=== PATIENT | female | born 1960 | race Caucasian/White ===

== ENCOUNTER 2017-06-30 10:34 | Inpatient (IN) | payer OTHER ==
[2017-06-30] MEDS ORDERED: NACL 0.9% 3 ML SYG IV (12:00)
[2017-06-30] MEDS ORDERED: GUAIFENESIN/DM 5ML CUP PO (12:00)
[2017-06-30] MEDS ORDERED: ACETAMINOPHEN 325 MG TAB PO (12:00)
[2017-06-30] MEDS ORDERED: ALBUTEROL/IPRATROPIUM (NEB) 3 ML AMP HHN (12:00)
[2017-06-30] MEDS ORDERED: GLUCOSE GEL 15 GRAM TUBE BUCCAL (12:30)
[2017-06-30] MEDS ORDERED: DEXTROSE 50% 50 ML SYRINGE IV ×2 (12:30)
[2017-06-30] MEDS ORDERED: GLUCOSE GEL 15 GRAM TUBE PO ×2 (12:30)
[2017-06-30] MEDS ORDERED: GLUCAGON 1 MG INJ IM (12:30)
[2017-06-30] MEDS: ALBUTEROL/IPRATROPIUM (NEB) 3 ML AMP HHN (13:05)
[2017-06-30] MEDS: CEFTRIAXONE 1 GM/50 ML (PMX) 50 ML IVPB (13:54)
[2017-06-30] MEDS: INSULIN GLARGINE [LANtus] 3 ML PEN SC (13:58)
[2017-06-30] MEDS ORDERED: DIPHENHYDRAMINE 25 MG CAP PO (14:30)
[2017-06-30] MEDS: AZITHROMYCIN 500MG/NS (PMX) 250 ML IVPB (14:35)
[2017-06-30 15:41] LABS: LACTIC ACID 3.4 mmol/L (0.5-2.0)
[2017-06-30] MEDS: SOD CHLORIDE 0.45% 1,000 ML IV (16:33)
[2017-06-30] MEDS: INSULIN ASPART [NOVOLOG] 3 ML PEN SC ×2 (17:09→21:00)
[2017-06-30] MEDS ORDERED: INSULIN ASPART [NOVOLOG] 3 ML PEN SC (17:35)
[2017-06-30] MEDS ORDERED: NON-FORMULARY/PATIENT OWN MED (Simvastatin 10 MG) PO (21:00)
[2017-06-30] MEDS: FAMOTIDINE 20 MG TAB PO (21:07)
[2017-06-30] MEDS: HEPARIN 5,000 UNIT/0.5 ML VIAL SC (21:14)
[2017-06-30] MEDS: ATORVASTATIN 10 MG TAB PO (21:17)
[2017-07-01] MEDS: ACCU-CHEK XX (01:18)
[2017-07-01] MEDS: SOD CHLORIDE 0.45% 1,000 ML IV ×2 (05:37→20:45)
[2017-07-01] MEDS: HYDROCHLOROTHIAZIDE 25 MG TAB PO (05:37)
[2017-07-01 05:39] LABS: ADD MAN DIFF? NO
[2017-07-01 05:41] LABS: WHITE BLOOD COUNT 11.5 10^3/ul (4.8-10.8)
[2017-07-01 05:41] LABS: ABNORMAL IP MESSAGE 1; BASOPHIL # 0.1 10^3/ul (0.0-0.1); BASOPHILS % 0.7 % (0.0-2.0); EOSINOPHILS # 0.2 10^3/ul (0.0-0.5); EOSINOPHILS % 2.1 % (0.0-7.0); LYMPHOCYTES # 5.6 10^3/ul (0.8-2.9); MEAN CORPUSCULAR HEMOGLOBIN 31.3 pg (29.0-33.0); MEAN CORPUSCULAR HGB CONC 34.3 g/dl (32.0-37.0); MEAN CORPUSCULAR VOLUME 91.4 fl (82.0-101.0); MEAN PLATELET VOLUME 12.8 fl (7.4-10.4); MONOCYTE # 0.6 10^3/ul (0.3-0.9); MONOCYTES % 5.2 % (0.0-11.0); NEUTROPHIL # 4.9 10^3/ul (1.6-7.5); NEUTROPHILS % 42.7 % (39.0-77.0); PLATELET COUNT 214 10^3/UL (140-415); RED BLOOD COUNT 3.83 10^6/ul (4.20-5.40); RED CELL DISTRIBUTION WIDTH 13.3 % (11.5-14.5)
[2017-07-01 05:59] LABS: POSITIVE DIFF @See below
[2017-07-01 06:18] LABS: ANION GAP 13 (8-16); BLOOD UREA NITROGEN 10 mg/dl (7-20); CALCIUM 8.5 mg/dl (8.4-10.2); CARBON DIOXIDE 26 mmol/L (21-31); CHLORIDE 109 mmol/L (97-110); CHOL/HDL RATIO 4.1 RATIO; CHOLESTEROL 144 mg/dl (100-200); CREATININE 0.66 mg/dl (0.44-1.00); GLUCOSE 96 mg/dl (70-220); HDL CHOLESTEROL 35 mg/dl (37-92); LDL CHOLESTEROL,CALCULATED 74 mg/dl; MAGNESIUM 1.8 mg/dl (1.7-2.5); POTASSIUM 3.4 mmol/L (3.5-5.1); SODIUM 145 mmol/L (135-144); TRIGLYCERIDES 176 mg/dl (0-149)
[2017-07-01 06:23] LABS: LACTIC ACID 1.3 mmol/L (0.5-2.0)
[2017-07-01 06:25] LABS: HEMOGLOBIN A1C 6.8 % (0-5.9)
[2017-07-01] MEDS: INSULIN ASPART [NOVOLOG] 3 ML PEN SC ×4 (08:00→20:49)
[2017-07-01] MEDS ORDERED: BENAZEPRIL 10 MG TAB PO (09:00)
[2017-07-01] MEDS ORDERED: AMLODIPINE 2.5 MG TAB PO (09:00)
[2017-07-01] MEDS: FAMOTIDINE 20 MG TAB PO ×2 (09:03→20:49)
[2017-07-01] MEDS: INSULIN GLARGINE [LANtus] 3 ML PEN SC (09:04)
[2017-07-01] MEDS: HEPARIN 5,000 UNIT/0.5 ML VIAL SC ×2 (09:04→20:48)
[2017-07-01] MEDS: CEFTRIAXONE 1 GM/50 ML (PMX) 50 ML IVPB (12:13)
[2017-07-01] MEDS: AZITHROMYCIN 500MG/NS (PMX) 250 ML IVPB (13:32)
[2017-07-01] MEDS ORDERED: GUAIFENESIN/DM 5ML CUP PO (19:00)
[2017-07-01] MEDS: ATORVASTATIN 10 MG TAB PO (20:47)
[2017-07-02] MEDS: ACCU-CHEK XX (01:36)
[2017-07-02 05:28] LABS: ADD MAN DIFF? NO
[2017-07-02 05:32] LABS: WHITE BLOOD COUNT 11.6 10^3/ul (4.8-10.8)
[2017-07-02 05:32] LABS: ABNORMAL IP MESSAGE 1; BASOPHIL # 0.1 10^3/ul (0.0-0.1); BASOPHILS % 0.8 % (0.0-2.0); EOSINOPHILS # 0.3 10^3/ul (0.0-0.5); EOSINOPHILS % 2.5 % (0.0-7.0); HEMATOCRIT 36.1 % (37.0-47.0); HEMOGLOBIN 12.3 g/dl (12.0-16.0); LYMPHOCYTES # 5.6 10^3/ul (0.8-2.9); LYMPHOCYTES % 48.7 % (15.0-51.0); MEAN CORPUSCULAR HEMOGLOBIN 30.4 pg (29.0-33.0); MEAN CORPUSCULAR HGB CONC 34.1 g/dl (32.0-37.0); MEAN CORPUSCULAR VOLUME 89.4 fl (82.0-101.0); MEAN PLATELET VOLUME 13.3 fl (7.4-10.4); MONOCYTE # 0.7 10^3/ul (0.3-0.9); MONOCYTES % 6.2 % (0.0-11.0); NEUTROPHIL # 4.8 10^3/ul (1.6-7.5); NEUTROPHILS % 41.5 % (39.0-77.0); PLATELET COUNT 229 10^3/UL (140-415); RED BLOOD COUNT 4.04 10^6/ul (4.20-5.40); RED CELL DISTRIBUTION WIDTH 13.1 % (11.5-14.5)
[2017-07-02 05:43] LABS: POSITIVE DIFF @See below
[2017-07-02 05:49] LABS: INR 1.02; PROTIME 13.5 Sec (11.9-14.9); PT RATIO 1.1
[2017-07-02 05:53] LABS: ALANINE AMINOTRANSFERASE 52 IU/L (13-69); ALBUMIN 3.9 g/dl (3.3-4.9); ALBUMIN/GLOBULIN RATIO 0.97; ALKALINE PHOSPHATASE 69 IU/L (42-121); ANION GAP 15 (8-16); ASPARTATE AMINO TRANSFERASE 43 IU/L (15-46); BILIRUBIN,INDIRECT 0.5 mg/dl (0-1.1); BILIRUBIN,TOTAL 0.5 mg/dl (0.2-1.3); BLOOD UREA NITROGEN 13 mg/dl (7-20); CALCIUM 9.1 mg/dl (8.4-10.2); CARBON DIOXIDE 28 mmol/L (21-31); CHLORIDE 106 mmol/L (97-110); CREATININE 0.65 mg/dl (0.44-1.00); GLUCOSE 95 mg/dl (70-220); MAGNESIUM 1.8 mg/dl (1.7-2.5); PHOSPHORUS 5.2 mg/dl (2.5-4.9); POTASSIUM 3.5 mmol/L (3.5-5.1); SODIUM 145 mmol/L (135-144); TOTAL PROTEIN 7.9 g/dl (6.1-8.1)
[2017-07-02] MEDS: INSULIN ASPART [NOVOLOG] 3 ML PEN SC ×2 (08:00→11:59)
[2017-07-02] MEDS: HEPARIN 5,000 UNIT/0.5 ML VIAL SC (09:00)
[2017-07-02] MEDS: FAMOTIDINE 20 MG TAB PO (10:28)
[2017-07-02] MEDS: SOD CHLORIDE 0.45% 1,000 ML IV (10:33)
[2017-07-02] MEDS: CEFTRIAXONE 1 GM/50 ML (PMX) 50 ML IVPB (11:56)
[2017-07-02] MEDS: INSULIN GLARGINE [LANtus] 3 ML PEN SC (12:01)
[2017-07-02] MEDS: AZITHROMYCIN 500MG/NS (PMX) 250 ML IVPB (13:00)
== END 2017-07-02 16:25 | disposition home or self-care (01) | DRG 916 ==
LOC: PP2 07-01 01:52 → MS3 10:34
PROVIDERS: Internal Medicine
DX: T78.3XXA Angioneurotic edema, initial encounter (principal); E87.2 Acidosis; I10 Essential (primary) hypertension; E78.00 Pure hypercholesterolemia, unspecified; E11.9 Type 2 diabetes mellitus without complications
CPT/HCPCS: 71045; 80048; 80053; 80061; 82962; 83036; 83605; 83735; 84100; 84443; 85025; 85610; 87040; 87086; 87400; 94664